=== PATIENT | female | born 1935 | race Two or more races ===

== ENCOUNTER 2021-08-09 14:17 | Emergency (ER) | payer OTHER ==
[~2021-08-09] VITALS: Ht 149.9 cm; Wt 48.5 kg
[2021-08-09] MEDS ORDERED: CARVEDILOL ER40 MG PO (14:41)
[2021-08-09] MEDS ORDERED: NOXIFOL-D32500 UNIT PO (14:41)
[2021-08-09] MEDS ORDERED: PRAVASTATIN SOD40 MG PO (14:41)
[2021-08-09] MEDS ORDERED: ENALAPRIL MALEAT5 MG PO (14:42)
[2021-08-09] MEDS ORDERED: LEVOTHYROXINE25 MC2 PO (14:42)
== END 2021-08-09 18:18 | disposition home or self-care (01) ==
LOC: ER 14:17
DX: R10.84 Generalized abdominal pain (principal); R14.3 Flatulence; Z91.013 Allergy to seafood; Z91.018 Allergy to other foods

== ENCOUNTER 2021-08-11 14:59 | Emergency (ER) | payer OTHER ==
[~2021-08-11] VITALS: Ht 149.9 cm; Wt 45.4 kg
[~2021-08-11 14:59] MED LIST: CARVEDILOL ER40 MG PO; ENALAPRIL MALEAT5 MG PO; LEVOTHYROXINE25 MC2 PO; NOXIFOL-D32500 UNIT PO; PRAVASTATIN SOD40 MG PO
== END 2021-08-11 16:42 | disposition home or self-care (01) ==
LOC: ER 14:59
DX: I10 Essential (primary) hypertension (principal); E78.00 Pure hypercholesterolemia, unspecified; E03.9 Hypothyroidism, unspecified; E16.2 Hypoglycemia, unspecified; Z91.013 Allergy to seafood; Z91.018 Allergy to other foods

== ENCOUNTER 2022-02-23 07:46 | Emergency (ER) | payer OTHER ==
[~2022-02-23] VITALS: Ht 149.9 cm; Wt 44.5 kg
[2022-02-23] MEDS ORDERED: CARVEDILOL ER40 MG PO (08:13)
[2022-02-23] MEDS ORDERED: CRESTOR40 MG PO (08:14)
== END 2022-02-23 09:00 | disposition home or self-care (01) ==
LOC: ER 07:46
DX: K06.8 Other specified disorders of gingiva and edentulous alveolar ridge (principal); I10 Essential (primary) hypertension; E03.9 Hypothyroidism, unspecified; Z91.013 Allergy to seafood; Z91.018 Allergy to other foods